=== PATIENT | male | born 1960 | race Two or more races ===

== ENCOUNTER 2023-10-03 13:06 | Emergency (ER) | payer BC, OTHER ==
[~2023-10-03] VITALS: Ht 180.3 cm; Wt 68.1 kg
[2023-10-03 15:22] VITALS: PULSE 74; RESP 16; O2SAT 98
[2023-10-03 15:40] VITALS: BP 118/81; PULSE 70; RESP 18; O2SAT 98
== END 2023-10-03 16:45 | disposition home or self-care (01) ==
LOC: ER 13:06 → EDBD 13:06 → ER 16:45
DX: S16.1XXA Strain of muscle, fascia and tendon at neck level, initial encounter (principal); S80.12XA Contusion of left lower leg, initial encounter; V43.52XA Car driver injured in collision with other type car in traffic accident, initial encounter; Y93.89 Activity, other specified; Y92.488 Other paved roadways as the place of occurrence of the external cause; Y99.8 Other external cause status
CPT/HCPCS: 72040; 73590